=== PATIENT | female | born 1945 | race Caucasian/White ===

== ENCOUNTER → 2018-03-22 | Outpatient (CLI) | payer MEDICARE, OTHER ==
[~2018-03-22] MED LIST: ACYC-50 PO; ALB0.5 INH; ALB6.7R IH; ALBU8.5H11 INH; AZIT500T47 PO; BUTA1CAP61 PO; CLA500 PO; DESL1TBM7 PO; ENA10 PO; ENA5 PO; ESOM40CA42 PO; FLU44R IH; FLUC150T40 PO; LEV25 PO; LEVA15HF IH; LEVO88TA45 PO; LORA10CA3 PO; MON10 PO; PRE20 PO; PRED-1 PO; RAL60 PO; THYROXINE PO; VALA100062 PO; [UNRECOGNIZED DRUG - CODE] PO
[2018-03-22 09:44] LABS: LDL CHOLESTEROL 80 mg/dl
[2018-03-22 09:49] LABS: PLATELET COUNT, AUTOMATED 216 K/uL (150-450)
== END ==
LOC: LAB 09:11
PROVIDERS: ATTEND Family Medicine
DX: E78.5 Hyperlipidemia, unspecified (principal); E11.9 Type 2 diabetes mellitus without complications; E03.9 Hypothyroidism, unspecified; D64.9 Anemia, unspecified; E55.9 Vitamin D deficiency, unspecified
CPT/HCPCS: 36415; 82040; 82247; 82306; 82310; 82374; 82435; 82465; 82565; 82607; 82947; 83036; 83718; 84075; 84132; 84155; 84295; 84443; 84450; 84460; 84478; 84520; 85025

== ENCOUNTER → 2018-12-05 | Outpatient (CLI) | payer MEDICARE, OTHER ==
[2018-12-05 11:09] LABS: LDL CHOLESTEROL 99 mg/dl
== END ==
LOC: LAB 10:19
PROVIDERS: ATTEND Family Medicine
DX: E78.5 Hyperlipidemia, unspecified (principal); E11.9 Type 2 diabetes mellitus without complications; E03.9 Hypothyroidism, unspecified
CPT/HCPCS: 36415; 82040; 82043; 82247; 82310; 82374; 82435; 82465; 82565; 82947; 83036; 83718; 84075; 84132; 84155; 84295; 84443; 84450; 84460; 84478; 84520

== ENCOUNTER → 2018-12-09 | Outpatient (CLI) | payer MEDICARE, OTHER ==
--- NOTE | 2018-12-09 14:57 | RADIOLOGY IMAGING REPORT ---
FACILITY: [facility] - [place], [place] PATIENT NAME: Geno Dominique : 1945 MR: [id number] V: [id number] EXAM DATE: ORDERING PHYSICIAN: BARRY MILLER TECHNOLOGIST: Location: [facility] Patient: Geno Dominique : 1945 Visit/Account:[id number] Date of Sevice: 12/09/2018 DEXA Scan Clinical history: Osteopenia. Comparison: DEXA scan from 01/09/2017. LUMBAR SPINE: The bone mineral density (BMD) measured from L2-L4 correlates with a Z-score of 1.4 and a T-score of 0.4 which is Normal as defined by the World Health Organization. The corresponding risk of fracture in the lumbar spine is Not increased compared with a young adult reference population. This value adams s increase by 0.9 % since the prior study. More than 5% change is considered significant. HIP: Bone mineral density (BMD) measured in the LEFT total hip region correlates with a Z-score -0.3 and a T-score of -1.4 which is osteopenia as defined by the World Health Organization. The corresponding risk of fracture in the hip is 2-3 times increased compared to a young adult reference population. Th is value has increase by 0.9 % since the prior study. More than 5% change is considered significant. T score left femoral neck -1.7 Bone mineral density (BMD) measured in the Femoral Neck region measures 0.795 g/cm?. IMPRESSION: 1. Lumbar spine: Normal. There has been increased by 0.9% in the bone mineral density since the pre vious exam. 2. Left Total Hip: Osteopenia. There has been 0.9% increase in the bone mineral density since the p revious exam. 3. Femoral Neck: Bone Mineral Density is 0.795 g/cm? The next DEXA scan of this patient should include the following sites: L2-L4 and the left hip. FRAX? WHO Fracture Risk Assessment Tool link: <http://www.shef.ac.uk/FRAX/tool.jsp?locationValue=9> PLEASE NOTE: 1) The World Health Organization defines low BMD as follows: T-score Normal > -1 Osteopenia < -1 and > -2.5 Osteoporosis < -2.5 without fractures Established osteoporosis < -2.5 with fractures 2) In general, you may wish to consider: Diagnosis Treatment Follow-up DEXA Normal BMD Prevention 2-3 years Osteopenia Prevention/therapy 1-2 years Osteoporosis Therapy Yearly 3) Fracture risk estimated from the T-score is more accurate for vertebral fractures (often spontane ous) than for hip fractures. Report Dictated By: Dianelys Baker MD at 12/09/2018 2:51 PM Report E-Signed By: Dianelys Baker MD at 12/09/2018 2:53 PM WSN:[email or web address]
--- NOTE | 2018-12-10 15:30 | RADIOLOGY IMAGING REPORT ---
FACILITY: [facility] - [place] PATIENT NAME: HENRI LEMON : [id number] MR: [id number] V: [id number] EXAM DATE: [id number] ORDERING PHYSICIAN: BARRY MILLER TECHNOLOGIST: Val Junior PROCEDURE:BILATERAL DIGITAL SCREENING MAMMOGRAM WITH CAD ASSISTED INTERPRETATION & 3D TOMOSYNTHESIS COMPARISON:Prior mammograms 01/09/17, 12/17/15, 09/10/14, 05/02/12, 04/24/12. INDICATIONS:SCREENING FINDINGS: There are areas of scattered fibroglandular density throughout the breasts. The parenchymal pattern has remained stable allowing for difference in mammographic technique & patient positioning. DIAGNOSTIC CATEGORY 1--NEGATIVE. RECOMMENDATIONS: ROUTINE MAMMOGRAM AND CLINICAL EVALUATION. IMPRESSION: BIRADS 1: Negative. No significant abnormality is seen. Dictated by: Dianelys Baker M.D. on 12/09/2018 at 17:55 Transcribed by: FITO on 12/10/2018 at 8:31 Approved by: Dianelys Baker M.D. on 12/10/2018 at 15:29 [facility]
== END ==
LOC: MAMO 01:19
PROVIDERS: ATTEND Family Medicine
DX: Z12.31 Encounter for screening mammogram for malignant neoplasm of breast (principal); M85.88 Other specified disorders of bone density and structure, other site
CPT/HCPCS: 77063; 77067; 77080

== ENCOUNTER 2019-04-21 21:04 | Emergency (ER) | payer MEDICARE, OTHER ==
[2019-04-21] MEDS ORDERED: LEVO75TA73 PO (21:25)
--- NOTE | 2019-04-21 21:34 | ER Report ---
History and Physical Time Seen By MD: 21:30 Hx. of Stated Complaint: HIGH BP AND MEDICAITON QUESTION HPI/ROS CHIEF COMPLAINT: Concern about elevated blood pressure and swelling in the legs HISTORY OF PRESENT ILLNESS: This is a 73-year-old female. She is having swelling in her legs bilaterally. This is been ongoing for some time but seems worse recently. She has noted that it does seem to worsen when she takes her enalapril and improves when she stops it. She is tried stopping this as well as other doses. Tonight she was worried because her blood pressure is running a little high. She denies any shortness of breath or chest pain associated with this. No headache. She was nervous about this and the changes in her enalapril that she is made recently since he came to the ER for further evaluation. Denies any history of heart problems. Denies any history of kidney problems. She does sometimes or compression stockings. She is very strict with following thediet and avoids any added salt. Denies any fevers or chills or recent illnesses. No headache. No vision changes. No dizziness. Allergies: Coded Allergies: tetracycline (Verified Allergy, Intermediate, RASH, 11/29/12) cefaclor (Verified Allergy, Unknown, 11/29/12) Penicillins (Verified Adverse Reaction, Severe, ANAPHYLAXIS, 11/29/12) Sulfa (Sulfonamide Antibiotics) (Verified Adverse Reaction, Severe, TOUNGE SWELLING, 11/29/12) cephalexin (Verified Adverse Reaction, Severe, ANAPHYLAXIS, 11/29/12) Home Meds Reported Medications Levothyroxine Sodium (LEVOTHYROXINE SODIUM) 75 Mcg Tablet, 88 MCG PO QDAY, TAB 04/21/19 Loratadine (CLARITIN) 10 Mg Capsule, 10 MG PO PRN for ALLERGY SYMPTOMS, CAPSULE 03/06/14 Levalbuterol Tartrate (XOPENEX HFA) 15 Gm Hfa.aer.ad, 45 MG IH BID 03/06/14 Esomeprazole Mag Trihydrate (Nexium) 40 Mg Capsule.dr, 40 MG PO QDAY 09/13/12 Enalapril Maleate (VASOTEC (OR EQUIV)) 5 Mg Tab, 5 MG PO DAILY 09/13/12 Albuterol Sulfate (Proventil Hfa) 8.5 Gm Aer.w.adap, 1 PUFF INH, 0 Refills 05/24/11 Montelukast Sodium (Singulair) 10 Mg Tab, 10 MG PO QDAY, 0 Refills 05/24/11 Discontinued Reported Medications Desloratadine/Pseudoephedrine (CLARINEX-D 12 HOUR TABLET) 1 Each Tbmp.12hr, 1 EACH PO PRN for ALLERGY SYMPTOMS 03/06/14 Levothyroxine Sodium (LEVOTHYROXINE SODIUM) 88 Mcg Tablet, 88 MCG PO QDAY 03/06/14 Butalb/Acetaminophen/Caffeine (CAPACET CAPSULE) 1 Each Capsule, 1 EACH PO PRN 09/13/12 Fluticasone Propionate (Flovent Hfa) 10.6 Gm Aer.w.adap, 10.6 GM IH BID 09/13/12 Discontinued Scripts Fluconazole (DIFLUCAN) 150 Mg Tablet, 150 MG PO QDAY, #2 TAB 0 Refills Take one tablet po now and may repeat in 3 days if symptoms have not improved Prov:HEATHER ELLIOTT MD 03/07/18 Reviewed Nurses Notes: Yes Hx Smoking: No Smoking Status: Never Smoker Hx Substance Use Disorder: No Constitutional Vital Sign - Last 24 Hours 04/21/19 04/21/19 04/21/19 04/21/19 21:11 21:14 21:30 21:34 Temp 98.5 Pulse 112 112 Resp 17 57 B/P (MAP) 150/77 (101) 150/77 142/73 (96) Pulse Ox 90 90 O2 Delivery Room Air 04/21/19 04/21/19 04/21/19 04/21/19 21:45 22:00 22:04 22:15 Pulse ??? B/P (MAP) 136/76 (96) 143/74 (97) 131/85 (100) 04/21/19 04/21/19 04/21/19 04/21/19 22:30 23:15 23:30 23:45 Pulse ??? B/P (MAP) 135/89 (104) 122/76 (91) 126/61 (82) 135/81 (99) 04/22/19 00:00 B/P (MAP) 127/82 (97) Physical Exam General Appearance: The patient is alert. No acute distress. Non-toxic in appearance. Eyes: Pupils are equal, round. Reactive to light. No pallor, injection or icterus. Extraocular movements are intact. ENT: Mucous membranes are moist. Normal oral mucosa. Posterior oropharynx is normal. Normal tympanic membranes and canals. Neck: Supple and non tender. No lymphadenopathy. Respiratory: Lungs are clear to auscultation. There are no retractions or accessory muscle use. Cardiovascular: Regular rate and rhythm. No murmurs, gallops or rubs. Normal capillary refill. Has 2+ edema with skin changes associated with chronic peripheral edema. Gastrointestinal: Abdomen is soft and non tender. Nondistended. Normal active b owel sounds. Neurological: Alert and oriented x3. Cranial nerves II through XII show no acute deficits on my exam. No focal neurologic deficits in the extremities. Skin: Warm and dry. No rashes. Musculoskeletal: Extremities are nontender. No tenderness in palpation of the cervical, thoracic and lumbar spine. DIFFERENTIAL DIAGNOSIS: After history and physical exam, differential diagnosis was considered for patient with elevated blood pressure, not significantly elevated enough that we would want emergently give medicines to lower this. We will look further labs, Medical Decision Making Data Points Result Diagram: 04/21/193 04/21/19 2213 Laboratory Hematology Test 04/21/19 22:13 White Blood Count 7.5 k/uL (4.5-11.0) Red Blood Count 5.43 M/uL (4.17-5.56) Hemoglobin 15.4 g/dL (12.0-16.0) Hematocrit 46.8 % (34.0-47.0) Mean Corpuscular Volume 86.3 fL (80.0-96.0) Mean Corpuscular Hemoglobin 28.4 pg (26.0-33.0) Mean Corpuscular Hemoglobin Concent 32.9 g/dL (32.0-36.0) Red Cell Distribution Width 13.8 % (11.5-14.5) Platelet Count 255 K/uL (150-450) Mean Platelet Volume 8.5 fL (7.2-11.1) Neutrophils (%) (Auto) 72.4 % (39.4-72.5) Lymphocytes (%) (Auto) 17.6 % (17.6-49.6) Monocytes (%) (Auto) 7.8 % (4.1-12.4) Eosinophils (%) (Auto) 1.3 % (0.4-6.7) Basophils (%) (Auto) 0.9 % (0.3-1.4) Nucleated RBC Relative Count (auto) 0.1 /100WBC Neutrophils # (Auto) 5.4 K/uL (2.0-7.4) Lymphocytes # (Auto) 1.3 K/uL (1.3-3.6) Monocytes # (Auto) 0.6 K/uL (0.3-1.0) Eosinophils # (Auto) 0.1 K/uL (0.0-0.5) Basophils # (Auto) 0.1 K/uL (0.0-0.1) Nucleated RBC Absolute Count (auto) 0.00 K/uL Chemistry Test 04/21/19 22:13 Sodium Level 141 mmol/L (137-145) Potassium Level 3.8 mmol/L (3.5-5.0) Chloride Level 103 mmol/L (98-107) Carbon Dioxide Level 28 mmol/L (22-31) Blood Urea Nitrogen 18 mg/dl (7-18) Creatinine 0.90 mg/dl (0.52-1.04) Glomerular Filtration Rate Calc > 60.0 Random Glucose 92 mg/dl (75-110) Calcium Level 9.2 mg/dl (8.4-10.2) Total Bilirubin 0.3 mg/dl (0.2-1.3) Aspartate Amino Transf (AST/SGOT) 26 U/L (0-35) Alanine Aminotransferase (ALT/SGPT) 35 U/L (0-56) Alkaline Phosphatase 82 U/L (0-126) Troponin I < 0.012 ng/ml Total Protein 7.5 g/dl (6.3-8.2) Albumin 4.3 g/dl (3.5-5.0) Urinalysis Test 04/21/19 22:13 Urine Color Straw Urine Clarity Clear Urine pH 6.0 pH (4.8-9.5) Urine Specific [place] 1.005 Urine Protein Negative mg/dL (NEGATIVE) Urine Glucose (UA) Negative mg/dL (NEGATIVE) Urine Ketones Negative mg/dL (NEGATIVE) Urine Blood Small (NEGATIVE) Urine Nitrite Negative (NEGATIVE) Urine Bilirubin Negative (NEGATIVE) Urine Urobilinogen Negative mg/dL (0.2-1.9) Urine Leukocyte Esterase Negative (NEGATIVE) Urine RBC 1 /HPF (0-2/HPF) Urine WBC None /HPF (0-5/HPF) Urine Squamous Epithelial Cells Few /LPF (</=FEW) Urine Bacteria Negative /HPF (NONE-FEW) Urine Mucus Few /HPF (NONE-FEW) EKG/Imaging EKG Interpretation Normal sinus rhythm, rate 97. Low-voltage QRSs. No ST elevation or depression noted. Normal axis. Imaging Study: Frontal and lateral views of the chest Indication: Elevated blood pressure, history of asthma Comparison study: None Findings: PA and lateral views of the chest demonstrate no evidence of acute infiltrate. There is no evidence of pleural effusion. There is no evidence of pneumothorax. The mediastinal, cardiac, and diaphragmatic contours are unremarkable. The visualized bony structures are unremarkable. IMPRESSION: Unremarkable chest. Report Dictated By: Checo Head at 04/21/2019 10:50 PM US VENOGRAM EXTREMITY, BILATERAL HISTORY: lower extremity swelling ADDITIONAL HISTORY: None. COMPARISON: None. FINDINGS: Grayscale, duplex and color Doppler interrogation of the bilateral lower extremity deep veins from common femoral vein to proximal calf was completed. The greater saphenous vein in the right and left proximal thigh was evaluated using similar technique. RIGHT lower extremity Common femoral vein: Negative. Femoral vein: Negative. Deep femoral vein: Negative. Popliteal vein: Negative. Visualized deep calf veins: Negative. Popliteal fossa: Negative. Greater saphenous vein in the proximal thigh: Negative. LEFT lower extremity: Common femoral vein: Negative. Femoral vein: Negative. Deep femoral vein: Negative. Popliteal vein: Negative. Visualized deep calf veins: Negative. Popliteal fossa: Negative. Greater saphenous vein in the proximal thigh: Negative. IMPRESSION: Negative for deep venous thrombosis within the bilateral lower extremities Report Dictated By: Checo Head at 04/21/2019 11:20 PM ED Course/Re-evaluation Clinical Indication for ER IV: IV Access ED Course Patient with normal labs and imaging. Discussed options with the patient as well as results. She will follow-up with Dr. Barillas and discuss further medications options. Discussed getting further workup, including echocardiogram and renal ultrasound given her continuing problems with edema. Decision to Disposition Date: Apr 22, 2019 Decision to Disposition Time: 00:04 Depart Departure Latest Vital Signs Vital Signs Date Time Temp Pulse Resp B/P (MAP) Pulse Ox O2 Delivery O2 Flow Rate FiO2 04/22/19 00:00 127/82 (97) 04/21/19 23:30 ??? 04/21/19 21:34 57 90 04/21/19 21:14 98.5 Room Air Impression: Primary Impression: Hypertension Additional Impression: Peripheral edema Condition: Improved Disposition: HOME OR SELF-CARE Referrals: HEATHER ELLIOTT MD (PCP) Patient Instructions: Edema (ED), Hypertension (ED) Additional Instructions: Please follow-up with your primary care provider for further management of medications. Further evaluation with cardiology may be appropriate, and studies such as echocardiogram and renal ultrasound. Elevate legs while at rest, wear compression stockings, avoid added salt in diet. Problem Qualifiers Primary Impression: Hypertension Hypertension type: essential hypertension Qualified Codes: I10 - Essential (primary) hypertension VALENTINE PINZON MD Apr 21, 2019 21:34
[2019-04-21 22:27] LABS: PLATELET COUNT, AUTOMATED 255 K/uL (150-450)
--- NOTE | 2019-04-21 23:00 | RADIOLOGY IMAGING REPORT ---
FACILITY: [facility] - [place] PATIENT NAME: Geno Dominique : 1945 MR: [id number] V: [id number] EXAM DATE: ORDERING PHYSICIAN: VALENTINE PINZON TECHNOLOGIST: Location: [facility] - [place] Patient: Geno Dominique : 1945 Visit/Account:[id number] Date of Sevice: 04/21/2019 Study: Frontal and lateral views of the chest Indication: Elevated blood pressure, history of asthma Comparison study: None Findings: PA and lateral views of the chest demonstrate no evidence of acute infiltrate. There is no evidence of pleural effusion. There is no evidence of pneumothorax. The mediastinal, cardiac, and diaphragmatic contours are unremarkable. The visualized bony structures are unremarkable. IMPRESSION: Unremarkable chest. Report Dictated By: Checo Head at 04/21/2019 10:50 PM Report E-Signed By: Checo Head at 04/21/2019 10:53 PM WSN:[id number]
--- NOTE | 2019-04-21 23:28 | RADIOLOGY IMAGING REPORT ---
FACILITY: [facility] - [place] PATIENT NAME: Geno Dominique : 1945 MR: [id number] V: [id number] EXAM DATE: ORDERING PHYSICIAN: VALENTINE PINZON TECHNOLOGIST: Location: [facility] Patient: Geno Dominique : 1945 Visit/Account:[id number] Date of Sevice: 04/21/2019 US VENOGRAM EXTREMITY, BILATERAL HISTORY: lower extremity swelling ADDITIONAL HISTORY: None. COMPARISON: None. FINDINGS: Grayscale, duplex and color Doppler interrogation of the bilateral lower extremity deep veins from co mmon femoral vein to proximal calf was completed. The greater saphenous vein in the right and left pr oximal thigh was evaluated using similar technique. RIGHT lower extremity Common femoral vein: Negative. Femoral vein: Negative. Deep femoral vein: Negative. Popliteal vein: Negative. Visualized deep calf veins: Negative. Popliteal fossa: Negative. Greater saphenous vein in the proximal thigh: Negative. LEFT lower extremity: Common femoral vein: Negative. Femoral vein: Negative. Deep femoral vein: Negative. Popliteal vein: Negative. Visualized deep calf veins: Negative. Popliteal fossa: Negative. Greater saphenous vein in the proximal thigh: Negative. IMPRESSION: Negative for deep venous thrombosis within the bilateral lower extremities Report Dictated By: Checo Head at 04/21/2019 11:20 PM Report E-Signed By: Checo Head at 04/21/2019 11:21 PM WSN:[id number]
--- NOTE | 2019-04-21 23:32 | EKG ---
FACILITY: [facility] PATIENT NAME: HENRI LEMON : [id number] MR: [id number] V: [id number] EXAM DATE: ORDERING PHYSICIAN: VALENTINE PINZON TECHNOLOGIST: JIMBO Wood Reason : Blood Pressure : / mmHG Vent. Rate : 097 BPM Atrial Rate : 097 BPM P-R Int : 178 ms QRS Dur : 076 ms QT Int : 368 ms P-R-T Axes : 071 016 046 degrees QTc Int : 467 ms Sinus rhythm Possible biatrial enlargement Borderline left axis No previous ECGs available Confirmed by LONDON CARDOZA ([id number] on 04/22/2019 6:13:40 AM Referred By: Confirmed By:LONDON CARDOZA
[2019-04-22] VITALS: BP 127/82
== END 2019-04-22 00:20 | disposition home or self-care (01) ==
LOC: ER 21:41
DX: I10 Essential (primary) hypertension (principal); R60.1 Generalized edema; Z79.899 Other long term (current) drug therapy
CPT/HCPCS: 71046; 81001; 82040; 82247; 82310; 82374; 82435; 82565; 82947; 84075; 84132; 84155; 84295; 84450; 84460; 84484; 84520; 85025; 93005; 93970